=== PATIENT | male | born 1970 | race Caucasian/White ===

== ENCOUNTER 2021-03-23 06:24 | Observation (INO) | payer SELFPAY ==
[2021-03-23 10:11] VITALS: BP 118/70; TEMP 97.9
[2021-03-23 10:16] VITALS: BMI 28.4
[2021-03-23] MEDS ORDERED: Nitroglycerin 0.4 MG TAB (25 Tab Bottle) SL PRN (13:57)
[2021-03-23] MEDS ORDERED: Acetaminophen 325 MG TAB PO PRN (13:57)
[2021-03-23] MEDS ORDERED: Ketorolac Tromethamine 30 MG/ML VIAL IVP SCH (14:15)
[2021-03-23] MEDS ORDERED: Lidocaine 2% Viscous Solution 10 ML, Aluminum & Magnesium Hydroxide 30 ML SSW SCH (15:00)
[2021-03-23 16:04] LABS: SARS-CoV-2 NAA Rapid Test Not Detected (NotDetected)
[2021-03-23 16:50] LABS: Hemoglobin A1c 4.8 % (4.0-6.0)
[2021-03-23 17:00] LABS: Cardiac Risk 3.8 (Less than 4.5)
[2021-03-23 17:06] LABS: Troponin I Less than 0.010 ng/mL (< 0.028)
== END 2021-03-23 18:13 | disposition home or self-care (01) ==
LOC: 2SW 06:24
PROVIDERS: ADMIT Emergency Medicine; ATTEND Emergency Medicine
DX: R07.89 Other chest pain (principal); F17.210 Nicotine dependence, cigarettes, uncomplicated; K21.9 Gastro-esophageal reflux disease without esophagitis; J45.909 Unspecified asthma, uncomplicated; Z79.899 Other long term (current) drug therapy; Z20.822 Contact with and (suspected) exposure to COVID-19
CPT/HCPCS: 36415; 80061; 83036; 84443; 94640; 96374; G0378; J1885; J7620; U0002

== ENCOUNTER 2025-02-09 09:53 | Outpatient (CLI) | payer BC ==
[2025-02-09] MEDS ORDERED: Iopamidol 370 76% 100 ML VIAL ONE (11:07)
== END 2025-02-09 09:54 | disposition home or self-care (01) ==
LOC: CT 09:53
PROVIDERS: ATTEND Urology
DX: C61 Malignant neoplasm of prostate (principal); K42.9 Umbilical hernia without obstruction or gangrene; R00.1 Bradycardia, unspecified; C68.9 Malignant neoplasm of urinary organ, unspecified; M43.17 Spondylolisthesis, lumbosacral region; Z72.0 Tobacco use
CPT/HCPCS: 74178; Q9967